=== PATIENT | female | born 1970 | race Caucasian/White ===

== ENCOUNTER 2022-05-15 08:16 | Day surgery (SDC) | payer BC, OTHER ==
[~2022-05-15] VITALS: Ht 165.1 cm; Wt 104.5 kg
[~2022-05-15 08:16] MED LIST: HYDROCODONE-AC118 M1 PO; LIDOCAINE HCL100 ML MT
--- NOTE | 2022-05-15 10:14 | NUR ---
05/15/22 1014 Saima Holt 1001 PATIENT ARRIVES TO PACU AWAKE BUT DROWSY. RESP EVEN AND UNLABORED, NC AT 3 LITERS. DENIES PAIN OR NAUSEA. RESTING WITH EYES CLOSED, WHEN NOT STIMULATED. 1010 PATIENT SLEEPING. AWAKENS WITH VERBAL STIMULI. TALKING WITH DR COPE, BACK TO SLEEP WHEN NOT STIMULATED. RESP EVEN AND UNLABORED, NC CONTINUES AT 3 LITERS.
--- NOTE | 2022-05-18 08:08 | OR ---
[facility] [address] [place], [place] [address] Signed DATE OF OPERATION: 05/15/2022 SURGEON: Charanjit Cope MD PREOPERATIVE DIAGNOSIS: Colon screening. POSTOPERATIVE DIAGNOSES: 1. Sigmoid diverticulosis. 2. Diminutive polyp of sigmoid (excised, specimen lost). PROCEDURE: Total colonoscopy to cecum with cold morcellation polypectomy x1. ANESTHESIA: Intravenous sedation, fentanyl 200 mcg and Versed 10 mg. INDICATION: This 51-year-old white woman is a patient of Nathalia MUNIZ. She is here for colon screening. She has no family history of colon cancer or symptoms of bleeding, diarrhea, or constipation. She understands the risk of colonoscopy including but not limited to bleeding, infection, and perforation and wished to proceed. FINDINGS: The prep was quite excellent. Complete colonoscopy was undertaken to the cecum without question. Numerous diverticula were noted of the sigmoid and left colon. There was a very diminutive polyp of the sigmoid, which was excised, but specimen lost in processing and therefore no specimen will be obtained. There were no other findings of concern. DESCRIPTION OF PROCEDURE: The patient was brought to the endoscopy suite and placed in the lateral decubitus position, given intravenous sedation to the point of slurred speech and nystagmus with full cardiopulmonary monitoring. Digital rectal examination was normal. An Olympus video colonoscope was passed in the rectum and manipulated throughout the colon ultimately intubating the cecum. Ileocecal valve and appendiceal orifice were normal. The scope was withdrawn from that point and examination throughout showed no sign of abnormality other than numerous diverticula of the sigmoid and left colon. In the sigmoid, there was a very diminutive polyp, photograph was taken. Cold morcellation Electronically Signed By: CHARANJIT COPE MD 05/18/22 0808 PATIENT NAME: ABBY GAN OPERATIVE REPORT DATE OF : 74 REPORT #: [id number] PHYSICIAN: CHARANJIT COPE MD PCP: NATHALIA CERNA PA-C REPORT IS CONFIDENTIAL AND NOT TO BE RELEASED WITHOUT AUTHORIZATION [facility] [address] [place], [place] [address] Signed biopsy excised it completely. The scope was withdrawn and retroflexed view undertaken showing no sign of abnormality. In the course of transfer of the specimen in a bottle, it was inadvertently discarded by the assistant professor. On that basis, no specimen will be reported. CONCLUDING DIAGNOSIS: Diverticulosis and diminutive polyp, probably hyperplastic polyp of sigmoid. PLAN: Recommend repeat colonoscopy in 5 to 10 years, sooner if symptoms should occur. MD ANNAMARIA Lee/ELODIA /[id number] cc: Copies: ~ Electronically Signed By: CHARANJIT COPE MD 05/18/22 0808 PATIENT NAME: ABBY GAN OPERATIVE REPORT DATE OF : 74 REPORT #: [id number] PHYSICIAN: CHARANJIT COPE MD PCP: NATHALIA CERNA PA-C REPORT IS CONFIDENTIAL AND NOT TO BE RELEASED WITHOUT AUTHORIZATION
== END 2022-05-15 10:45 | disposition home or self-care (01) ==
LOC: DS 08:16 → OPS 08:16
PROVIDERS: ATTEND Surgery
PROC: 0DBN8ZX Excision of Sigmoid Colon, Via Natural or Artificial Opening Endoscopic, Diagnostic (ICD-10-PCS; principal; 2022-05-15 09:25)
DX: Z12.11 Encounter for screening for malignant neoplasm of colon (principal); K63.5 Polyp of colon; K57.30 Diverticulosis of large intestine without perforation or abscess without bleeding; E04.1 Nontoxic single thyroid nodule; Z80.8 Family history of malignant neoplasm of other organs or systems
CPT/HCPCS: 84703; 99153; G0500; J2250; J3010; J7121

== ENCOUNTER 2023-10-29 07:55 | Day surgery (SDC) | payer BC, OTHER ==
--- NOTE | 2023-10-20 11:28 | NUR ---
PHONE CALL TO PT NO ANSWER, LEFT MESSAGE WILL TRY AGAIN LATER TODAY.
[~2023-10-29] VITALS: Ht 165.1 cm; Wt 104.5 kg
[~2023-10-29 07:55] MED LIST changes: +CEFAZOLIN SODIUM 2 GM/20 ML SYR IV SCH; +HYDROCHLOROTH12.5 MG PO; +IBLOOD GLUCOSE TEST STRIP 1 EA TEST VI PRN; +LACTATED RINGER'S 1,000 ML IV SCH; +LIDOCAINE HCL 1% 5 ML SDV INJ ONE
[2023-10-29 08:10] VITALS: BP 120/81
[2023-10-29] MEDS ORDERED: MELOXICAM7.5 MG PO (08:11)
[2023-10-29] MEDS ORDERED: fentaNYL citrate 100 MCG/2 ML VIAL ONE (08:31)
[2023-10-29] MEDS ORDERED: ondansetron HCL 4 MG/2 ML VIAL ONE (08:31)
[2023-10-29] MEDS ORDERED: propofoL 200 MG/20 ML VIAL ONE ×2 (08:31→09:56)
[2023-10-29] MEDS ORDERED: KETOROLAC TROMETHAMINE 30 MG/ML VIAL ONE (08:31)
[2023-10-29] MEDS ORDERED: DEXAMETHASONE SOD PHOS 4 MG/ML VIAL ONE (08:31)
[2023-10-29] MEDS ORDERED: MIDAZOLAM HCL 2 MG/2 ML VIAL ONE (08:31)
[2023-10-29] MEDS ORDERED: ACETAMINOPHEN 1,000 MG/100 ML VIAL ONE (09:11)
[2023-10-29] MEDS ORDERED: NALOXONE HCL 0.4 MG SYR IV PRN (10:45)
[2023-10-29] MEDS ORDERED: IBUPROFEN 600 MG TAB PO PRN (10:45)
[2023-10-29] MEDS ORDERED: LACTATED RINGER'S 1,000 ML IV SCH (10:45)
[2023-10-29] MEDS ORDERED: ACETAMINOPHEN 500 MG TAB PO PRN (10:45)
[2023-10-29] MEDS ORDERED: OXYCODONE/APAP 7.5/325 TAB PO PRN (10:45)
[2023-10-29] MEDS ORDERED: IBUPROFEN600 MG PO (10:46)
[2023-10-29] MEDS ORDERED: ACETAMINOPHEN500 MG PO (10:47)
[2023-10-29] MEDS ORDERED: OXYCODON-ACETA1 EAC2 PO (10:47)
--- NOTE | 2023-10-29 10:55 | NUR ---
10/29/23 1055 An Martínez 1029-PT ARRIVED TO PACU AAO AND ABLE TO ANSWER QUESTIONS APPROPRIATELY. PT ON RA AND SATS 95% OR GREATER. RR APPEARS EVEN AND UNLABORED. PT DENIES NAUSEA WHEN ASKED AND REPORTS TOLERABLE PAIN OF 3/10 AT INCISION SITE AND CHADD-INCISION SITE. PT DESCIBES THE PAIN A SLIGHT BURNING FEELING. 1035-RR REMAINS EVEN AND UNLABORED. PT CONT TO DENY NAUSEA AND REPORTS NO CHANGE IN PAIN, REMAINS TOLERABLE AT 3/10. RFA IS ELEVATED ON PILLOWS. 1050-DR. COPE AT PTS BEDSIDE DISCUSSING CASE WITH PT.
[2023-10-29 12:01] VITALS: BP 126/89
--- NOTE | 2023-10-30 11:23 | OR ---
[facility] [address] [place], [place] [address] Signed DATE OF OPERATION: 10/29/2023 SURGEON: Charanjit Cope MD PREOPERATIVE DIAGNOSIS: Right anterolateral forearm soft tissue mass consistent with lipoma x2. POSTOPERATIVE DIAGNOSIS: Right anterolateral forearm soft tissue mass consistent with lipoma x2. PROCEDURE: Excision of soft tissue mass, right forearm x2. ANESTHESIA: Local with monitored anesthesia care, MARKET PRESIDENT and local 10 mL of 0.25% Marcaine with epinephrine. INDICATION: This 53-year-old white woman is a patient of Nathalia Cerna. She has had swelling in the anterolateral aspect of the upper right forearm. Imaging study including ultrasound has shown lipoma. There is no sign of other abnormality. Given the complaints of pain and in addition to pain that she has in the ulnar distribution (not related to this finding), she wishes to have excision of the soft tissue mass of the right anterolateral forearm. She understands the risk of bleeding, infection, nerve injury, and importantly failure to cure her symptoms. Understanding that she wished to proceed. FINDINGS: A distinct 2 cm lipoma was noted in one area easily palpable and affirmed prior to operation itself. Cephalad and lateral to that, the bulky area over the brachioradialis muscle did appear to be fatty tissue, but not a distinct lipomatous mass as the former excise lesion. On that basis, intramuscular exploration was undertaken showing no sign of intramuscular lipoma. Of note, radial nerve branch was identified and preserved throughout. DESCRIPTION OF PROCEDURE: The patient was brought to the operating room and given intravenous sedation. Preoperative antibiotics were given. Sequential compression device stockings were used. The right arm was prepared with a chlorhexidine solution and draped sterilely. The area of palpable abnormality at proximal upper outer aspect was marked carefully. There Electronically Signed By: CHARANJIT COPE MD 10/30/23 1123 PATIENT NAME: ABBY GAN OPERATIVE REPORT DATE OF : 74 REPORT #: [id number] PHYSICIAN: CHARANJIT COPE MD PCP: NATHALIA CERNA PA-C REPORT IS CONFIDENTIAL AND NOT TO BE RELEASED WITHOUT AUTHORIZATION [facility] [address] [place], [place] [address] Signed were two distinct lesions juxtaposed to each other, the inferior one relatively small and quite clearly well-defined, the upper one more bulky and contiguous or possibly within the brachioradialis muscle. The initial small lesion was incised somewhat tangentially and dissection carried through the dermis sharply. Relatively promptly a well-circumscribed lipomatous mass was identified, it was shelled out in total. Electrocautery was used for hemostasis. It measured about 2 cm. Lateral and superior to this, the more bulky mass-like lesion of the brachioradialis was identified and a tangential incision separate and distinct from the original incision was made. Dissection was carried through the dermis with electrocautery. Blunt dissection was undertaken showing fatty tissue, but no distinct and discrete mass as previously had been seen and the other lipomatous mass. Dissection was carried down to the muscular fascia. The radial nerve branch was identified and well preserved. As there was bulkiness of the brachioradialis itself, it was thought possibly intramuscular lipoma would be present. On that basis, the fiber sheath was incised and the muscle fiber with a hemostat looking into the depths of the muscle affirming no evidence of lipoma. There was no untoward bleeding. Subcutaneous fat making up the bulky lesion was dissected free from the overlying dermis with sharp and electrocautery dissection allowing for a good contour to the proximal forearm. This was labeled as lipoma #2, though much of it was subcutaneous fat, not associated with distinct lipomatous tissue. Irrigation was undertaken and 10 mL of 0.25% Marcaine was injected in total throughout the course of this dissection. Both wounds were closed with interrupted 2-0 Vicryl and running subcuticular 3-0 Vicryl for the skin. Steri-Strips were applied as was an Acticoat dressing. The patient was allowed to emerge from sedation and taken to the recovery room in good condition having suffered no known complications. Sponge, needle, and instrument counts reported as correct x3. Charanjit Cope MD /PATTIL /[id number] cc: FLAVIO Wick Electronically Signed By: CHARANJIT COPE MD 10/30/23 1123 PATIENT NAME: ABBY GAN OPERATIVE REPORT DATE OF : 74 REPORT #: [id number] PHYSICIAN: CHARANJIT COPE MD PCP: NATHALIA CERNA PA-C REPORT IS CONFIDENTIAL AND NOT TO BE RELEASED WITHOUT AUTHORIZATION [address] [address] Signed Copies: ~ Electronically Signed By: CHARANJIT COPE MD 10/30/23 1123 PATIENT NAME: ABBY GAN OPERATIVE REPORT DATE OF : 74 REPORT #: [id number] PHYSICIAN: CHARANJIT COPE MD PCP: NATHALIA CERNA PA-C REPORT IS CONFIDENTIAL AND NOT TO BE RELEASED WITHOUT AUTHORIZATION
--- NOTE | 2023-11-02 16:50 | PATH ---
[facility] [address] [facility] [place] [address] Signed SPECIMEN(S): A RIGHT FOREARM LIPOMA #1 SPECIMEN(S): B RIGHT FOREARM LIPOMA #2 SPECIMEN SOURCE: A. RIGHT FOREARM LIPOMA #1 B. RIGHT FOREARM LIPOMA #2 CLINICAL HISTORY: A-B) Excision of right arm lipoma FINAL PATHOLOGIC DIAGNOSIS: A. 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 B. 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 JVR:clv MICROSCOPIC EXAMINATION: Histologic sections of all submitted blocks are examined by light microscopy. These findings, together with the gross examination, support the pathologic diagnosis. GROSS DESCRIPTION: A. The specimen, labeled and designated "Jarred, right forearm lipoma #1," is received in formalin and consists of a portion of yellow-garsia lobulated fatty tissue (1.9 x 1.5 x 1.1 cm). The tissue is inked blue, and serially sectioned to reveal yellow-garsia fatty cut surfaces. The specimen is submitted entirely in cassette (A1). B. The specimen, labeled and designated "Jarred, right forearm lipoma #2," is received in formalin and consists of multiple fragmented portions of yellow-garsia lobulated fatty tissue (4.0 x 4.0 x 1.3 cm in aggregate). The tissue is sectioned to reveal yellow to pink-garsia soft and fatty cut surfaces. Enamel Applier sections are submitted in cassette (B1). VB (under the direct supervision of a pathologist) The Gross Description was prepared using a voice recognition system. The report was reviewed for accuracy; however, sound-alike word errors, addition and/or deletions may occur. If there is any question about this report, please contact Client Services. PATIENT NAME: ABBY GAN PATHOLOGY DATE OF : 74 REPORT #: [id number] PHYSICIAN: [facility]ATE PATHOLOGY PCP: NATHALIA CERNA PA-C REPORT IS CONFIDENTIAL AND NOT TO BE RELEASED WITHOUT AUTHORIZATION [facility] [address] [facility] [place] [address] Signed ADDITIONAL NOTES: Immunohistochemical and/or in situ hybridization studies if performed in this case included appropriate positive controls that reacted as expected. This test was developed and its performance characteristics determined by [facility]. It has not been cleared or approved by the U.S. Food and Drug Administration. The FDA has determined that such clearance or approval is not necessary. This test is used for clinical purposes. It should not be regarded as investigational or for research. [facility] is certified under the Clinical Laboratory Improvement Amendments of 1988 (CLIA) as qualified to perform high complexity clinical laboratory testing. PERFORMING LABORATORY: Technical component was performed by [facility], [address] [place] [id number] (CLIA# [id number]). Professional interpretation was performed by [facility], [address] [place] [id number] (CLIA#: [id number]). Diagnostician: Regan Medellin MD Pathologist Electronically Signed 11/02/2023 Copies: ~ PATIENT NAME: ABBY GAN PATHOLOGY DATE OF : 74 REPORT #: [id number] PHYSICIAN: KATE PATHOLOGY PCP: NATHALIA CERNA PA-C REPORT IS CONFIDENTIAL AND NOT TO BE RELEASED WITHOUT AUTHORIZATION
== END 2023-10-29 11:35 | disposition home or self-care (01) ==
LOC: DS 07:55
PROVIDERS: ATTEND Surgery
PROC: 0JBD0ZZ Excision of Right Upper Arm Subcutaneous Tissue and Fascia, Open Approach (ICD-10-PCS; principal; 2023-10-29 09:30)
DX: D17.21 Benign lipomatous neoplasm of skin and subcutaneous tissue of right arm (principal); E66.9 Obesity, unspecified; Z68.36 Body mass index [BMI] 36.0-36.9, adult
CPT/HCPCS: 01810; J0131; J0690; J1100; J1885; J2250; J2405; J2704; J3010; J7121